=== PATIENT | male | born 1980 | race Caucasian/White ===

== ENCOUNTER → 2022-03-10 08:48 | Outpatient (REF) | payer BC, SELFPAY | LOC: HO.SL 08:48 | PROVIDERS: Visit Provider Nurse Practitioner Family | DX: R06.83 Snoring (principal); R40.0 Somnolence | CPT/HCPCS: 95806 ==

== ENCOUNTER → 2022-06-10 08:03 | Outpatient (BNVA) | payer BC, SELFPAY | PROVIDERS: PCP Internal Medicine; Visit Provider Nurse Practitioner Family | DX: Z13.89 Encounter for screening for other disorder (principal) ==

== ENCOUNTER 2023-11-05 08:49 | Outpatient (AMB) | payer BC, SELFPAY ==
--- NOTE | 2023-11-05 09:17 | A.OFFVIS_ITS ---
Vital Signs 11/05/23 09:18 Height 6 ft Weight 258 lb BMI 35.0 Pulse 88 Pulse Source Pulse Oximeter Pulse Oximetry (%) 97 Oxygen Delivery Method Room Air Intake Visit Reasons: 1yr f/u Sleeping problems Intake Note: Patient presents for follow up Allergies Penicillins Allergy (Unknown, Verified 11/05/23 09:18) Unknown Sulfa (Sulfonamide Antibiotics) Allergy (Unknown, Verified 11/05/23 09:18) Unknown HPI Comments Details: 43-yr-old male presents for follow-up visit of sleep apnea. Pt denies any significant interval medical history changes. Pt states he is sleeping well with CPAP. Overall feels rested w/ use. Pt notes he has had a recent weight gain, which he attributes to ending a long- term relationship w/ his fiance, eating more quick/fast foods, and being overall more sedentary. However, he is now making healthier food choices and trying to exercise more- run/cycle, and trying to involve his children more. [address], [facility] Email: [email or web address] Compliance Report Usage 10/06/2023 - 11/04/2023 Usage days 30/30 days (100%) >= 4 hours 30 days (100%) < 4 hours 0 days (0%) Usage hours 190 hours 28 minutes Average usage (total days) 6 hours 21 minutes Average usage (days used) 6 hours 21 minutes Median usage (days used) 6 hours 29 minutes Total used hours (value since last reset - 11/04/2023) 3,699 hours AirSense 11 AutoSet Serial number [id number] Mode AutoSet Min Pressure 5 cmH2O Max Pressure 15 cmH2O EPR Fulltime EPR level 2 Response Standard Therapy Pressure - cmH2O Median: 8.0 95th percentile: 11.5 Maximum: 13.4 Leaks - L/min Median: 3.1 95th percentile: 17.4 Maximum: 26.2 Events per hour AI: 0.6 HI: 0.5 AHI: 1.1 Apnea Index Central: 0.0 Obstructive: 0.5 Unknown: 0.0 RERA Index 0.2 PFSH Social History Alcohol intake: current Alcohol intake frequency: a few times a month Patient Tobacco Use Status: Former Tobacco user Substance Use Type: Marijuana Physical Exam Vital Signs: Last Vital Signs Pulse 88 11/05/23 09:18 Pulse Ox 97 11/05/23 09:18 Oxygen Delivery Method Room Air 11/05/23 09:18 BMI result Body Mass Index 35.0 Const General: no acute distress Orientation/consciousness: patient oriented x3 HEENT Other: Mallampati stage Resp Effort & Inspection: normal respiratory effort and able to speak in complete sentences Neuro General: patient oriented x3 Psych Mental Status: mental status grossly normal Speech and movement: Clear speech present Attitude: cooperative Results Reviewed Results Reviewed: PAP compliance report- see HPI Assessment & Plan Assessment & Plan (1) ILIA on CPAP: Comment: Severe degree of sleep apnea. The AHI was 28/hr and oxygen rona was 77%. Code(s): G47.33 - Obstructive sleep apnea (adult) (pediatric); Z99.89 - Dependence on other enabling machines and devices Category: Medical (2) BMI 35.0-35.9,adult: Code(s): Z68.35 - Body mass index [BMI] 35.0-35.9, adult Category: Medical Plan Continue APAP 5-15 cmH2O w/ EPR 2 nightly > 4 hours, as pt continues to have good clinical effect from use. Encouraged pt to continue optimizing diet and increasing physical activity. Weight loss would likely reduce ILIA severity and s/s. Clean CPAP machine and supplies routinely. Change CPAP supplies routinely. Pt to contact us or respiratory company with any questions or concerns. Coding Level of Care Code Est Pt Level 4 (80207) Diagnoses ILIA on CPAP G47.33; Z99.89 BMI 35.0-35.9,adult Z68.35
[2023-11-05 09:18] VITALS: PULSE 88; O2SAT 97; BMI 35.0
== END 2023-11-05 10:12 | disposition home or self-care (01) ==
PROVIDERS: Visit Provider Nurse Practitioner Family
DX: G47.33 Obstructive sleep apnea (adult) (pediatric) (principal); Z99.89 Dependence on other enabling machines and devices; Z68.35 Body mass index [BMI] 35.0-35.9, adult
CPT/HCPCS: 99214

== ENCOUNTER → 2023-11-05 08:49 | Outpatient (BNVA) | payer BC, SELFPAY | PROVIDERS: Visit Provider Nurse Practitioner Family ==

== ENCOUNTER 2024-11-03 09:56 | Outpatient (AMB) | payer BC, SELFPAY ==
[2024-11-03 10:04] VITALS: BP 142/100; PULSE 87; O2SAT 95; BMI 37.7
--- NOTE | 2024-11-03 10:04 | A.OFFVIS_ITS ---
Vital Signs 11/03/24 10:04 Height 6 ft Weight 278 lb 2 oz BMI 37.7 BP 142/100 H Blood Pressure Location Lt brachial Position Sitting Pulse 87 Pulse Source Pulse Oximeter Pulse Oximetry (%) 95 Oxygen Delivery Method Room Air Intake Visit Reasons: 1yr F/U Intake Note: Patient presents for follow up Lead Custodian Required: No Accompanied by: Self / Same As Patient Allergies Penicillins Allergy (Unknown, Verified 11/03/24 10:13) Unknown Sulfa (Sulfonamide Antibiotics) Allergy (Unknown, Verified 11/03/24 10:13) Unknown HPI Comments Details: 43-yr-old male presents for follow-up visit of sleep apnea. Pt denies any significant interval medical history changes. Pt states he is sleeping well with CPAP. Uses it nightly. However, he had a delay in receiving his CPAP supply refills, as it needed a new refill script which was ordered in August. States he has not has been as good with eating a health diet and exercising consistently, however he has a plan to reestablish care with his PCP at the [place] [address] Email: [email or web address] Compliance Report Usage 10/06/2023 - 11/04/2023 Usage days 30/30 days (100%) >= 4 hours 30 days (100%) Usage > 4 hours 94% Average usage (days used) 6 hours 34 minutes AirSense 11 AutoSet Serial number [id number] Mode AutoSet Min Pressure 5-15 cmH2O with EPR 2 Leaks * Median: 2.7 lpm * Maximum: 25.6 lpm Residual events per hour: 2.4 per hour [facility] Social History Alcohol intake: current Alcohol intake frequency: a few times a month Patient Tobacco Use Status: Former Tobacco user Substance Use Type: Marijuana Physical Exam Vital Signs: Last Vital Signs Pulse 87 11/03/24 10:04 BP 142/100 H 11/03/24 10:04 Pulse Ox 95 11/03/24 10:04 Oxygen Delivery Method Room Air 11/03/24 10:04 BMI result Body Mass Index 37.7 Const General: no acute distress Orientation/consciousness: patient oriented x3 Resp Effort & Inspection: normal respiratory effort and able to speak in complete sentences Neuro General: patient oriented x3 Cranial nerves: Yes CN's II-XII intact bilaterally Gait exam (Neuro): Normal gait present Psych Mental Status: mental status grossly normal Speech and movement: Clear speech present Attitude: cooperative Results Reviewed Results Reviewed: PAP compliance report- see HPI Assessment & Plan Assessment & Plan (1) ILIA on CPAP: Comment: Severe degree of sleep apnea. The AHI was 28/hr and oxygen rona was 77%. Code(s): G47.33 - Obstructive sleep apnea (adult) (pediatric); Z99.89 - Dependence on other enabling machines and devices Category: Medical (2) BMI 35.0-35.9,adult: Code(s): Z68.35 - Body mass index [BMI] 35.0-35.9, adult Category: Medical Plan Continue APAP 5-15 cmH2O w/ EPR 2 nightly > 4 hours, as pt continues to have good clinical effect from use. Encouraged pt to continue optimizing diet and increasing physical activity. Weight loss would likely reduce ILIA severity and s/s. Clean CPAP machine and supplies routinely. Change CPAP supplies routinely. Pt to contact us or respiratory company with any questions or concerns. Provided copies of pt's most recent CPAP compliance report and baseline HST reports. Pt to follow-up in August 2025 (to better align with when his next CPAP supply order will be due) months or sooner prn. Coding Level of Care Code Est Pt Level 3 (23209) Diagnoses ILIA on CPAP G47.33; Z99.89 BMI 35.0-35.9,adult Z68.35
--- OUTSIDE RECORDS SUMMARY | 2024-11-03 11:12 | XMS_ITS | Clinical Summary ---
Author Organization [facility] Address [address] [place] [address] Phone Care Team Providers Care Product Tester Name Role Phone Ayad Lawrence DO Primary Care Provider [phone] Allergies Active Allergy Reactions Criticality Noted Date Comments Penicillin Unknown 11/25/2023 Sulfa (Sulfonamide Antibiotics) Itching 04/2023 Medications FLUoxetine (PROzac) 20 mg capsule Take 1 capsule (20 mg total) by mouth 1 (one) time each day. Active LORazepam (ATIVAN) 0.5 mg tablet Take 1 tablet (0.5 mg total) by mouth every 6 (six) hours if needed for anxiety. Max Daily Amount: 2 mg Active Medical History Medical History Date Comments Anxiety Sleep apnea treated with continuous positive air way pressure (CPAP) Social History Tobacco Use Types Packs/Day Years Used Date Smoking Tobacco: Former Cigarettes Smokeless Tobacco: Never Tobacco Cessation:Counseling Given: Not Answered Alcohol Use Standard Drinks/Week Comments Yes 0 (1 standard drink = 0.6 oz pur e alcohol) OCASSIONAL Interpersonal Safety Answer Date Record ed Physical Abuse 05/23/2024 Verbal Abuse 05/23/2024 Sex and Gender Information Value Date Recorded Sex Assigned at Male 05/22/2024 1:41 PM EDT Legal Sex Male 1:06 AM EST Gender Identity Male 05/22/2024 1:41 PM EDT Sexual Orientation Straight 05/22/2024 1: 41 PM EDT Obstetrics History Last Filed Vital Signs Vital Sign Reading Time Taken Comments Blood Pressure 120/90 05/23/2024 4:08 PM EDT Pulse 82 05/23/2024 4:08 PM EDT Temperature 36.2 C (97.2 F) 05/23/2024 3:04 PM EDT Respiratory Rate 17 05/23/2024 4:08 PM EDT Oxygen Saturation 97% 05/23/2024 4:08 PM EDT Inhaled Oxygen Concentration - - Weight 118 kg (260 lb) 04/10/2024 11:00 AM EST Height 182.9 cm (6') 04/10/2024 11:00 AM EST Body Mass Index 35.26 04/10/2024 11:00 AM EST Plan of Treatment Health Maintenance Due Date Last Done Comments DTaP,Tdap,and Td Vaccines (1 - Tdap) 1998 Cholesterol Screening (Lipid Panel) 01/25/2022 HIV Screening 01/25/2022 Hepatitis C Screening 01/25/2022 Social Influencers of Health Screening 01/25/2022 Depression Screening 02/23/2024 COVID-19 Vaccine ( - 2023-2 5 season) 2024 Influenza Vaccine (#1) 2024 Colorectal Cancer Screening: Colonoscopy 05/23/2034 05/23/2024 Hepatitis B Vaccines Completed 03/28/2013, 03/03/2008, 05/21/2002 HIB Vaccines Aged Out No longer eligi ble based on patient's age to complete this topic HPV Vaccines Aged Out No longer eligi ble based on patient's age to complete this topic Hepatitis A Vaccines Aged Out No long er eligible based on patient's age to complete this topic IPV Vaccines Aged Out No longer eligi ble based on patient's age to complete this topic MMR Vaccines Aged Out No longer eligi ble based on patient's age to complete this topic Meningococcal ACWY Vaccine Aged Out N o longer eligible based on patient's age to complete this topic Meningococcal B Vaccine Aged Out No l onger eligible based on patient's age to complete this topic Pneumococcal Vaccine: Pediatrics (0 to 5 Years) and At-Risk Patients (6 to 49 Years) Aged Out No longer eligible b ased on patient's age to complete this topic RSV Immunization Patients Under 20 months Aged Out No longer eligible b ased on patient's age to complete this topic Varicella Vaccines Aged Out No longer eligible based on patient's age to complete this topic Procedures Procedure Name Priority Date/Time Associated Diagnosis Comments COLONOSCOPY Routine 05/23/2024 3:47 PM EDT Colon cancer screening from Last 3 Months or Most Recently Relevant to Health Maintenance Results * COLONOSCOPY Anesthesia - MAC; [facility] ENDOSCOPY (05/23/2024 3:47 PM EDT) Anatomical Region Laterality Modality Endoscopy 05/23/2024 3:21 PM EDT Impressions 05/23/2024 3:49 PM EDT - Three 3 to 6 mm polyps in the sigmoid colon, in the transverse colon and in the cecum, removed with a cold snare. Resected and retrieved. - One 15 mm polyp in the sigmoid colon, removed with a hot snare. Resected and retrieved. Injected. - The examination was otherwise normal on direct and retroflexion views. Recommendation: - Discharge patient to home. - Await pathology results. - Repeat colonoscopy in 3 years for surveillance. - The patient has ADVANCED ADENOMA found on his first colonoscopy. He is higher than average risk for colon cancer. Narrative 05/23/2024 3:49 PM EDT [facility] GI Patient Name: Arnold Crum Procedure Date: 05/23/2024 3:21 PM Date of : 1980 Age: 44 Gender: Male Note Status: Finalized Attending MD: Denisa Anaya MD, Procedure Date No Time: 05/23/2024 Procedure: Colonoscopy Indications: Screening for colorectal malignant neoplasm Providers: Denisa Anaya MD Referring MD: Denisa Anaya MD Medicines: Monitored Anesthesia Care Complications: No immediate complications. Estimated blood loss: Minimal. Estimated Blood Loss: Estimated blood loss was minimal. Procedure: Pre-Anesthesia Assessment: - Prior to the procedure, a History and Physical was performed, and patient medications and allergies were reviewed. The patient is competent. The risks and benefits of the procedure and the sedation options and risks were discussed with the patient. All questions were answered and informed consent was obtained. Patient identification and proposed procedure were verified by the physician, the nurse, the burrer marker axle and the emanations analysis technician in the pre-procedure area in the endoscopy suite. Mental Status Examination: alert and oriented. Airway Examination: normal oropharyngeal airway and neck mobility. Respiratory Examination: clear to auscultation. CV Examination: normal. Prophylactic Antibiotics: The patient does not require prophylactic antibiotics. Prior Anticoagulants: The patient has taken no anticoagulant or antiplatelet agents. ASA Grade Assessment: III - A patient with severe systemic disease. After reviewing the risks and benefits, the patient was deemed in satisfactory condition to undergo the procedure. The anesthesia plan was to use monitored anesthesia care (MAC). Immediately prior to administration of medications, the patient was re-assessed for adequacy to receive sedatives. The heart rate, respiratory rate, oxygen saturations, blood pressure, adequacy of pulmonary ventilation, and response to care were monitored throughout the procedure. The physical status of the patient was re-assessed after the procedure. After I obtained informed consent, the scope was passed under direct vision. Throughout the procedure, the patient's blood pressure, pulse, and oxygen saturations were monitored continuously. The Olympus Colonoscope was introduced through the anus and advanced to the cecum, identified by appendiceal orifice and ileocecal valve. The colonoscopy was performed without difficulty. The patient tolerated the procedure well. The quality of the bowel preparation was good. Findings: The perianal and digital rectal examinations were normal. Three sessile polyps were found in the sigmoid colon, transverse colon and cecum. The polyps were 3 to 6 mm in size. These polyps were removed with a cold snare. Resection and retrieval were complete. Estimated blood loss was minimal. A 15 mm polyp was found in the sigmoid colon. The polyp was pedunculated. Area was successfully injected with 2 mL of a 0.1 mg/mL solution of epinephrine for lesion assessment, and this injection appeared to lift the lesion adequately. The polyp was removed with a hot snare. Resection and retrieval were complete. Estimated blood loss was minimal. The exam was otherwise without abnormality on direct and retroflexion views. Procedure Code(s): --- Professional --- 64845, Colonoscopy, flexible; with removal of tumor(s), polyp(s), or other lesion(s) by snare technique [id number], Colonoscopy, flexible; with directed submucosal injection(s), any substance Diagnosis Code(s): --- Professional --- D12.5, Benign neoplasm of sigmoid colon D12.3, Benign neoplasm of transverse colon (hepatic flexure or splenic flexure) D12.0, Benign neoplasm of cecum CPT copyright 2020 [employer]. All rights reserved. The codes documented in this report are preliminary and upon reinsurance clerk review may be revised to meet current compliance requirements. Denisa Anaya MD 05/23/2024 3:48:59 PM This report has been signed electronically.Denisa Anaya MD Number of Addenda: 0 Note Initiated On: 05/23/2024 3:21 PM Scope Withdrawal Time: 0 hours 12 minutes 54 seconds Scope In: 3:26:59 PM Scope Out: 3:45:57 PM Endoscopy Department at [address] [phone] Procedure Note Denisa Anaya MD - 05/23/2024 [facility] GI Patient Name: Arnold Crum Procedure Date: 05/23/2024 3:21 PM Date of : 1980 Age: 44 Gender: Male Note Status: Finalized Attending MD: Denisa Anaya MD, Procedure Date No Time: 05/23/2024 Procedure: Colonoscopy Indications: Screening for colorectal malignant neoplasm Providers: Denisa Anaya MD Referring MD: Denisa Anaya MD Medicines: Monitored Anesthesia Care Complications: No immediate complications. Estimated blood loss: Minimal. Estimated Blood Loss: Estimated blood loss was minimal. Procedure: Pre-Anesthesia Assessment: - Prior to the procedure, a History and Physicalwas performed, and patient medications and allergieswere reviewed. The patient is competent. The risks and benefits of the procedure and the sedation optionsand risks were discussed with the patient. Allquestions were answered and informed consent was obtained. Patient identification and proposed procedure were verified by the physician, the nurse, theanesthetist and the emanations analysis technician in the pre-procedure area in the endoscopy suite. Mental Status Examination: alertand oriented. Airway Examination: normal oropharyngeal airway and neck mobility. Respiratory Examination: clear to auscultation. CV Examination: normal. Prophylactic Antibiotics: The patient does notrequire prophylactic antibiotics. Prior Anticoagulants: The patient has taken no anticoagulant or antiplatelet agents. ASA Grade Assessment: III - A patient with severe systemic disease. After reviewing the risksand benefits, the patient was deemed in satisfactory condition to undergo the procedure. The anesthesia plan was to use monitored anesthesia care (MAC). Immediately prior to administration of medications, the patient was re-assessed for adequacy to receive sedatives. The heart rate, respiratory rate, oxygen saturations, blood pressure, adequacy of pulmonary ventilation, and response to care were monitored throughout the procedure. The physical status ofthe patient was re-assessed after the procedure. After I obtained informed consent, the scope was passed under direct vision. Throughout theprocedure, the patient's blood pressure, pulse, and oxygen saturations were monitored continuously. TheOlympus Colonoscope was introduced through the anus and advanced to the cecum, identified by appendiceal orifice and ileocecal valve. The colonoscopy was performed without difficulty. The patient tolerated the procedure well. The quality of the bowel preparation was good. Findings: The perianal and digital rectal examinations were normal. Three sessile polyps were found in the sigmoidcolon, transverse colon and cecum. The polyps were 3 to 6mm in size. These polyps were removed with a coldsnare. Resection and retrieval were complete. Estimatedblood loss was minimal. A 15 mm polyp was found in the sigmoid colon. The polyp was pedunculated. Area was successfullyinjected with 2 mL of a 0.1 mg/mL solution of epinephrinefor lesion assessment, and this injection appeared tolift the lesion adequately. The polyp was removed with a hot snare. Resection and retrieval were complete. Estimated blood loss was minimal. The exam was otherwise without abnormality ondirect and retroflexion views. Procedure Code(s): --- Professional --- 53310, Colonoscopy, flexible; with removal of tumor(s), polyp(s), or other lesion(s) by snare technique [id number], Colonoscopy, flexible; with directedsubmucosal injection(s), any substance Diagnosis Code(s): --- Professional --- D12.5, Benign neoplasm of sigmoid colon D12.3, Benign neoplasm of transverse colon (hepatic flexure or splenic flexure) D12.0, Benign neoplasm of cecum CPT copyright 2020 [employer]. All rights reserved. The codes documented in this report are preliminary and upon reinsurance clerk reviewmay be revised to meet current compliance requirements. Denisa Anaya MD 05/23/2024 3:48:59 PM This report has been signed electronically.Denisa Anaya MD Number of Addenda: 0 Note Initiated On: 05/23/2024 3:21 PM Scope Withdrawal Time: 0 hours 12 minutes 54 seconds Scope In: 3:26:59 PM Scope Out: 3:45:57 PM Endoscopy Department at [facility] - [address] [place] [id number] IMPRESSION: - Three 3 to 6 mm polyps in the sigmoid colon, in the transverse colon and in the cecum, removed with acold snare. Resected and retrieved. - One 15 mm polyp in the sigmoid colon, removedwith a hot snare. Resected and retrieved. Injected. - The examination was otherwise normal on directand retroflexion views. Recommendation: - Discharge patient to home. - Await pathology results. - Repeat colonoscopy in 3 years for surveillance. - The patient has ADVANCED ADENOMA found on hisfirst colonoscopy. He is higher than average risk forcolon cancer. us Denisa Anaya MD GI~PROCEDURE ORDERABLES Fin al Result from Last 3 Months or Most Recently Relevant to Health Maintenance Insurance [facility] Care Teams Product Tester Relationship Specialty Start Date End Date Ayad Lawrence DO [address] [place] [id number] PCP - General 02/08/23
--- OUTSIDE RECORDS SUMMARY | 2024-11-03 11:12 | XMS_ITS | Clinical Summary ---
Author Organization [facility] Address [address] [place] [address] Phone Care Team Providers Care Anatomic Pathologist Name Role Phone Ayad Lawrence DO Primary Care Provider [phone] Allergies Active Allergy Reactions Criticality Noted Date Comments Penicillins 07/23/2017 Medications aspirin 81 mg chewable tablet Take 81 mg by mouth daily. 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 06/14/2018 Assessment & Plan (06/14/2018 12:08 PM EDT): As above we are going to check a venous reflux study although a lot of his symptoms sound neurologic to me as listed in the HPI Pain in limb 06/14/2018 Assessment & Plan (06/14/2018 12:09 PM EDT): Pain in the limb and discoloration which was unequal in the feet is definitely a feature of his symptomatology Social History Tobacco Use Types Packs/Day Years Used Date Smoking Tobacco: Former Cigarettes Q uit: 03/25/2018 Smokeless Tobacco: Never Alcohol Use Standard Drinks/Week Comments Yes 0 (1 standard drink = 0.6 oz pur e alcohol) socially Education Answer Date Recorded Are you interested in more education? Not on kwesi e 06/19/2022 Are you concerned about learning? Not on file 06/19/2022 No 06/19/2022 No 06/19/2022 Digital Access Answer Date Recorded No 07/18/2022 No 07/18/2022 No 07/18/2022 Reliable internet access at home? Not on file 07/18/2022 Device with a working camera? Not on file Sex and Gender Information Value Date Recorded Sex Assigned at Male 07/23/2017 6:17 AM EDT Legal Sex Male 5:56 AM EDT Gender Identity Male 07/23/2017 6:17 AM EDT Sexual Orientation Straight 07/23/2017 6: 17 AM EDT Last Filed Vital Signs Vital Sign Reading Time Taken Comments Blood Pressure 134/99 08/02/2018 6:00 PM EDT Pulse 64 08/02/2018 6:00 PM EDT Temperature 36.6 C (97.9 F) 08/02/2018 3:32 PM EDT Respiratory Rate 14 08/02/2018 6:00 PM EDT Oxygen Saturation 98% 08/02/2018 6:00 PM EDT Inhaled Oxygen Concentration - - Weight 91.2 kg (201 lb) 08/02/2018 3:32 PM EDT Height 185.4 cm (6' 1 ) 08/02/2018 3:32 PM EDT Body Mass Index 26.52 08/02/2018 3:32 PM EDT Plan of Treatment Health Maintenance Due Date Last Done Comments Adult Td,Tdap Booster 1979 LIPID PANEL 1979 DEPRESSION SCREENING 1991 SMOKING Hx and SMOKELESS TOBACCO SCREENING 02/21/1992 HEPATITIS C SCREENING 1997 HIV ONE-TIME SCREENING (18-6 5 YEARS) 1997 COLOGUARD 02/21/2024 COLONOSCOPY 02/21/2024 COLORECTAL CANCER SCREENING 02/21/2024 FIT TEST 02/21/2024 FOBT 02/21/2024 SIGMOIDOSCOPY 02/21/2024 VIRTUAL COLONOSCOPY 02/21/2024 INFLUENZA VACCINE (#1) 2024 COVID-19 VACCINE (2 6 season) 2024 08/06/2020, 07/17/2020 HEPATITIS A VACCINES Aged Out No long er eligible based on patient's age to complete this topic HIB VACCINES Aged Out No longer eligi ble based on patient's age to complete this topic MENINGOCOCCAL VACCINES (ACWY) Aged Out No longer eligible based on patient's age to complete this topic MENINGOCOCCAL VACCINES (B) Aged Out N o longer eligible based on patient's age to complete this topic PNEUMOCOCCAL VACCINES (0-49 years) Aged Out No longer eligible b ased on patient's age to complete this topic Medical Devices Not on file Insurance C[employer] LOCAL PLUS IN/NON CONTRACT PLANS CIGNA LOCAL PLUS IN/NON CONTRACT PLANS CIGNA LOCAL PLUS IN/NON CONTRACT PLANS CIGNA LOCAL PLUS IN/NON CONTRACT PLANS CIGNA LOCAL PLUS IN/NON CONTRACT PLANS CIGNA LOCAL PLUS IN/NON CONTRACT PLANS CIGNA LOCAL PLUS IN/NON CONTRACT PLANS CIGNA LOCAL PLUS IN/NON CONTRACT PLANS CIGNA LOCAL PLUS IN/NON CONTRACT PLANS Care Teams Anatomic Pathologist Relationship Specialty Start Date End Date Marco AntonioKristen tiwarinoDO [address] [place] [address] [address] [place] [address] PCP - General Internal Medicine 05/13/18 Additional Source Comments The information contained in this document represents components of the legal health record. It is not the complete legal health record.[facility]
== END 2024-11-03 11:06 | disposition home or self-care (01) ==
LOC: HO.HSMS 09:56
PROVIDERS: PCP Internal Medicine; Visit Provider Nurse Practitioner Family
DX: G47.33 Obstructive sleep apnea (adult) (pediatric) (principal); Z99.89 Dependence on other enabling machines and devices; Z68.35 Body mass index [BMI] 35.0-35.9, adult
CPT/HCPCS: 99213